=== PATIENT | male | born 1990 | race Hispanic/Latino ===

== ENCOUNTER 2020-06-19 06:51 | Emergency (ER) | payer SELFPAY ==
[2020-06-19 08:46] LABS: Absolute Lymphocytes (CBC) 1.9 K/uL (0.7-4.9); Basophils % 0.4 % (0-1.3); Hematocrit 44.7 % (39.6-49.0); Lymphocytes % 19.9 % (15.3-44.8); MPV 6.5 fL (7.6-11.3); RBC Red Blood Cell Count 5.01 M/uL (4.33-5.43)
[2020-06-19] MEDS ORDERED: NA CHLORIDE 0.9% 1,000 ML ONE (09:09)
[2020-06-19 09:13] LABS: Protime INR 1.03
[2020-06-19 09:39] LABS: ALT/SGPT 46 U/L (12-78); AST/SGOT 20 U/L (15-37); Albumin 4.2 g/dL (3.4-5.0); Alkaline Phosphatase 78 U/L (45-117); BUN Blood Urea Nitrogen 13 mg/dL (7-18); Bicarbonate 27 mmol/L (21-32); Bilirubin Direct 0.1 mg/dL (0-0.2); Bilirubin Total 0.5 mg/dL (0.2-1.0); Glucose Level 105 mg/dL (74-106); Sodium Level 139 mmol/L (136-145); Thyroid Stimulating Hormone 0.249 uIU/mL (0.360-3.740)
--- NOTE | 2020-06-19 09:45 | EDPHYS ---
Physician Documentation [facility] Name: Jer Cowan Jr Age: 30 yrs Sex: Male : 1990 Arrival Date: 06/19/2020 Time: 06:58 Bed 26 Private MD: ED Physician Chong Rendon HPI: 06/19 09:38 This 30 yrs old Male presents to ER via Ambulatory with complaints of argelia Palpitations, Vision Problem. 09:38 The patient presents with a history of heart racing. Context: The symptoms occur with [facility] anxiety. Onset: The symptoms/episode began/occurred 1 month(s) ago. Duration: The patient or guardian reports multiple episodes, with no pattern. Modifying factors: The symptoms are aggravated by anxiety, caffeine. Associated signs and symptoms: Pertinent positives: lightheadedness. Severity of symptoms: At their worst the symptoms were mild in the emergency department the symptoms have resolved. The patient has experienced similar episodes in the past, multiple times. Historical: - Allergies: 07:24 No Known Allergies; iw - Home Meds: 07:24 None [Active]; iw - PMHx: 07:24 None; iw - PSHx: 07:24 Appendectomy; Knee surgery; iw - Immunization history:: Adult Immunizations. - Social history:: Smoking status: Patient reports the use of cigarette tobacco products, smokes one pack cigarettes per day. - Family history:: not pertinent. ROS: 09:38 Constitutional: Negative for fever, chills, and weight loss, Eyes: Negative for injury, argelia pain, redness, and discharge, ENT: Negative for injury, pain, and discharge, Neck: Negative for injury, pain, and swelling, Respiratory: Negative for shortness of breath, cough, wheezing, and pleuritic chest pain, Abdomen/GI: Negative for abdominal pain, nausea, vomiting, diarrhea, and constipation, Back: Negative for injury and pain, : Negative for injury, bleeding, discharge, and swelling, MS/Extremity: Negative for injury and deformity, Skin: Negative for injury, rash, and discoloration, Neuro: Negative for headache, weakness, numbness, tingling, and seizure, Psych: Negative for depression, anxiety, suicide ideation, homicidal ideation, and hallucinations, Allergy/Immunology: Negative for hives, rash, and allergies, Endocrine: Negative for neck swelling, polydipsia, polyuria, polyphagia, and marked weight changes, Hematologic/Lymphatic: Negative for swollen nodes, abnormal bleeding, and unusual bruising. 09:38 Cardiovascular: Positive for palpitations. 09:38 Respiratory: Negative for cough, dyspnea on exertion, hemoptysis, orthopnea, pleurisy, shortness of breath, sputum production. Exam: 09:38 Constitutional: This is a well developed, well nourished patient who is awake, alert, argelia and in no acute distress. Head/Face: Normocephalic, atraumatic. Eyes: Pupils equal round and reactive to light, extra-ocular motions intact. Lids and lashes normal. Conjunctiva and sclera are non-icteric and not injected. Cornea within normal limits. Periorbital areas with no swelling, redness, or edema. ENT: Nares patent. No nasal discharge, no septal abnormalities noted. Tympanic membranes are normal and external auditory canals are clear. Oropharynx with no redness, swelling, or masses, exudates, or evidence of obstruction, uvula midline. Mucous membranes moist. Neck: Trachea midline, no thyromegaly or masses palpated, and no cervical lymphadenopathy. Supple, full range of motion without nuchal rigidity, or vertebral point tenderness. No Meningismus. Chest/axilla: Normal chest wall appearance and motion. Nontender with no deformity. No lesions are appreciated. Cardiovascular: Regular rate and rhythm with a normal S1 and S2. No gallops, murmurs, or rubs. Normal PMI, no JVD. No pulse deficits. Respiratory: Lungs have equal breath sounds bilaterally, clear to auscultation and percussion. No rales, rhonchi or wheezes noted. No increased work of breathing, no retractions or nasal flaring. Abdomen/GI: Soft, non-tender, with normal bowel sounds. No distension or tympany. No guarding or rebound. No evidence of tenderness throughout. Back: No spinal tenderness. No costovertebral tenderness. Full range of motion. Male : Normal genitalia with no discharge or lesions. Skin: Warm, dry with normal turgor. Normal color with no rashes, no lesions, and no evidence of cellulitis. MS/ Extremity: Pulses equal, no cyanosis. Neurovascular intact. Full, normal range of motion. Neuro: Awake and alert, GCS 15, oriented to person, place, time, and situation. Cranial nerves II-XII grossly intact. Motor strength 5/5 in all extremities. Sensory grossly intact. Cerebellar exam normal. Normal gait. Psych: Awake, alert, with orientation to person, place and time. Behavior, mood, and affect are within normal limits. 09:46 ECG was reviewed by the Attending Physician. [facility] Vital Signs: 07:22 BP 156 / 98; Pulse 99; Resp 16; Temp 97.8; Pulse Ox 100% on R/A; iw 09:00 BP 125 / 76; Pulse 62; Resp 15 S; Pulse Ox 100% on R/A; ca1 10:00 BP 126 / 75; Pulse 72; Resp 16 S; Pulse Ox 100% on R/A; ca1 MDM: 08:13 Patient medically screened. argelia 09:41 JACKY Risk Score: Total Score = 0. Differential diagnosis: arrythmia, dehydration, argelia stress disorder. Data reviewed: vital signs, nurses notes, lab test result(s), EKG, radiologic studies, plain films. Data interpreted: lunchroom monitor: rate is 62 beats/min, rhythm is regular, Pulse oximetry: on. Test interpretation: by ED physician or midlevel provider: ECG, plain radiologic studies. Counseling: I had a detailed discussion with the patient and/or guardian regarding: the historical points, exam findings, and any diagnostic results supporting the discharge/admit diagnosis, lab results, radiology results, the need for outpatient follow up, for definitive care, a telegraph service clerk, a family practitioner. 06/19 08:15 Order name: Acetaminophen [facility] 06/19 08:15 Order name: Basic Metabolic Panel [facility] 06/19 08:15 Order name: CBC with Diff [facility] 06/19 08:15 Order name: ETOH Level [facility] 06/19 08:15 Order name: Hepatic Function [facility] 06/19 08:15 Order name: PT-INR; Complete Time: 09:34 [facility] 06/19 08:15 Order name: Ptt, Activated; Complete Time: 09:34 [facility] 06/19 08:15 Order name: Salicylate; Complete Time: 09:34 [facility] 06/19 08:15 Order name: Urine Drug Screen [facility] 06/19 08:15 Order name: TSH [facility] 06/19 08:16 Order name: Acetaminophen Level [facility] 06/19 08:16 Order name: Basic Metabolic Panel [facility] 06/19 08:16 Order name: CBC with Automated Diff; Complete Time: 09:34 [facility] 06/19 08:16 Order name: Alcohol Serum/Plasma; Complete Time: 09:34 [facility] 06/19 08:15 Order name: EKG; Complete Time: 08:16 [facility] 06/19 08:15 Order name: EKG - Nurse/Tech; Complete Time: 08:59 [facility] 06/19 08:15 Order name: IV Saline Lock; Complete Time: 08:59 [facility] 06/19 08:15 Order name: Labs collected and sent; Complete Time: 09:00 [facility] 06/19 08:15 Order name: Urine Dipstick-Ancillary (obtain specimen); Complete Time: 09:00 [facility] 06/19 08:15 Order name: Chest Single View XRAY [facility] 06/19 08:16 Order name: Liver (Hepatic) Function [facility] 06/19 08:49 Order name: Urine Dipstick--Ancillary (enter results) eb EC:46 Rate is 69 beats/min. Rhythm is regular. QRS [place] is Normal. NV interval is normal. QRS argelia interval is normal. QT interval is normal. No Q waves. T waves are Normal. No ST changes noted. Clinical impression: NSR w/ Non-specific ST/T Changes and No evidence of ischemia. Interpreted by me. Reviewed by me. Administered Medications: 08:45 Drug: NS 0.9% 1000 ml Route: IV; Rate: 1 bolus; Site: right antecubital; ca1 09:30 Follow up: IV Status: Completed infusion; IV Intake: 1000ml ca1 10:00 Drug: Aspirin 162 mg Route: PO; ca1 10:32 Follow up: Response: No adverse reaction ca1 Disposition: 06/19/20 09:44 Discharged to Home. Impression: Palpitations, Tobacco abuse counseling, Tobacco use, Anxiety disorder, unspecified. - Condition is Stable. - Discharge Instructions: Panic Attacks, Palpitations, Steps to Quit Smoking, Smoking Hazards, Steps to Quit Smoking, [id number]-[id number], Panic Attacks, [id number], Aspirin and Your Heart, Palpitations, Fyir-[id number]-Gtno. - Prescriptions for Hydroxyzine HCl 25 mg Oral Tablet - take 1 tablet by ORAL route every 6 hours As needed; 30 tablet. - Medication Reconciliation Form, Thank You Letter, Antibiotic Education, Prescription Opioid Use form. - Follow up: Private Physician; When: 2 - 3 days; Reason: Recheck today's complaints, Continuance of care, Re-evaluation by your physician. Follow up: Caleb Yang MD; When: 2 - 3 days; Reason: Recheck today's complaints, Re-evaluation by your physician. - Problem is new. - Symptoms have improved. Signatures: Dispatcher [employer] Chong Fuentes MD MD cha Williams, Irene, RN RN iw Kelsey Valero RN RN ca1 Corrections: (The following items were deleted from the chart) 09:45 09:44 06/19/2020 09:44 Discharged to Home. Impression: Palpitations; Tobacco abuse argelia counseling; Tobacco use. Condition is Stable. Forms are Medication Reconciliation Form, Thank You Letter, Antibiotic Education, Prescription Opioid Use. Follow up: Private Physician; When: 2 - 3 days; Reason: Recheck today's complaints, Continuance of care, Re-evaluation by your physician. Follow up: Caleb Yang; When: 2 - 3 days; Reason: Recheck today's complaints, Re-evaluation by your physician. Problem is new. Symptoms have improved. argelia 10:34 09:45 06/19/2020 09:44 Discharged to Home. Impression: Palpitations; Tobacco abuse ca1 counseling; Tobacco use; Anxiety disorder, unspecified. Condition is Stable. Discharge Instructions: Palpitations, Steps to Quit Smoking, Smoking Hazards, Steps to Quit Smoking, Umwo-hb-Nylx, Aspirin and Your Heart, Palpitations, Ibrx-[id number]-Hwvf. Prescriptions for Hydroxyzine HCl 25 mg Oral Tablet - take 1 tablet by ORAL route every 6 hours As needed; 30 tablet. and Forms are Medication Reconciliation Form, Thank You Letter, Antibiotic Education, Prescription Opioid Use. Follow up: Private Physician; When: 2 - 3 days; Reason: Recheck today's complaints, Continuance of care, Re-evaluation by your physician. Follow up: Caleb Yang; When: 2 - 3 days; Reason: Recheck today's complaints, Re-evaluation by your physician. Problem is new. Symptoms have improved. argelia
--- NOTE | 2020-06-19 09:45 | ER ---
Nurse's Notes [facility] Name: Jer Cowan Jr Age: 30 yrs Sex: Male : 1990 Arrival Date: 06/19/2020 Time: 06:58 Bed 26 Private MD: Diagnosis: Palpitations;Tobacco abuse counseling;Tobacco use;Anxiety disorder, unspecified Presentation: 06/19 07:22 Chief complaint: Patient states: has been having trouble breathing and his heart has iw been beating funny and gets randomly dizzy and it brings on anxiety, started a month ago. Coronavirus screen: At this time, the client does not indicate any symptoms associated with coronavirus-19. Ebola Screen: Patient negative for fever greater than or equal to 101.5 degrees Fahrenheit, and additional compatible Ebola Virus Disease symptoms Patient denies exposure to infectious person. Patient denies travel to an Ebola-affected area in the 21 days before illness onset. No symptoms or risks identified at this time. Initial Sepsis Screen: Does the patient meet any 2 criteria? No. Patient's initial sepsis screen is negative. Does the patient have a suspected source of infection? No. Patient's initial sepsis screen is negative. Risk Assessment: Do you want to hurt yourself or someone else? Patient reports no desire to harm self or others. Onset of symptoms was May 2020. 07:22 Method Of Arrival: Ambulatory iw 07:22 Acuity: JOHNNY 3 iw Historical: - Allergies: 07:24 No Known Allergies; iw - Home Meds: 07:24 None [Active]; iw - PMHx: 07:24 None; iw - PSHx: 07:24 Appendectomy; Knee surgery; iw - Immunization history:: Adult Immunizations. - Social history:: Smoking status: Patient reports the use of cigarette tobacco products, smokes one pack cigarettes per day. - Family history:: not pertinent. Screenin:15 Abuse screen: Denies threats or abuse. Denies injuries from another. Nutritional ca1 screening: No deficits noted. Tuberculosis screening: No symptoms or risk factors identified. Fall Risk IV access (20 points). Assessment: 08:15 General: Appears in no apparent distress. comfortable, Behavior is calm, cooperative, ca1 appropriate for age. Pain: Denies pain. Neuro: Level of Consciousness is awake, alert, obeys commands, Oriented to person, place, time, situation. Cardiovascular: Heart tones S1 S2 present Capillary refill < 3 seconds Patient's skin is warm and dry. Rhythm is sinus rhythm. Respiratory: Airway is patent Respiratory effort is even, unlabored, Respiratory pattern is regular, symmetrical. GI: Abdomen is flat, non-distended, Bowel sounds present X 4 quads. Abd is soft and non tender X 4 quads. : No signs and/or symptoms were reported regarding the genitourinary system. EENT: No signs and/or symptoms were reported regarding the EENT system. Derm: Skin is intact, is healthy with good turgor, Skin is pink, warm \T\ dry. Musculoskeletal: Circulation, motion, and sensation intact. Capillary refill < 3 seconds. 09:00 Reassessment: Patient appears in no apparent distress at this time. Patient and/or ca1 family updated on plan of care and expected duration. Pain level reassessed. Patient is alert, oriented x 3, equal unlabored respirations, skin warm/dry/pink. 10:00 Reassessment: Patient appears in no apparent distress at this time. Patient and/or ca1 family updated on plan of care and expected duration. Pain level reassessed. Patient is alert, oriented x 3, equal unlabored respirations, skin warm/dry/pink. Vital Signs: 07:22 BP 156 / 98; Pulse 99; Resp 16; Temp 97.8; Pulse Ox 100% on R/A; iw 09:00 BP 125 / 76; Pulse 62; Resp 15 S; Pulse Ox 100% on R/A; ca1 10:00 BP 126 / 75; Pulse 72; Resp 16 S; Pulse Ox 100% on R/A; ca1 ED Course: 06:58 Patient arrived in ED. am4 07:24 Triage completed. iw 07:25 Arm band placed on. iw 08:13 Chong Rendon MD is Attending Physician. argelia 08:15 Kelsey Valero RN is Primary Nurse. ca1 08:15 Patient has correct armband on for positive identification. Bed in low position. Call ca1 light in reach. Side rails up X2. cafeteria monitor on. Pulse ox on. NIBP on. Warm blanket given. 08:45 Inserted saline lock: 20 gauge in right antecubital area, using aseptic technique. ca1 Blood collected. 08:45 EKG done, by ED staff, reviewed by Chong Rendon MD. ca1 09:35 Chest Single View XRAY In Process Unspecified. EDMS 09:44 Caleb Yang MD is Referral Physician. argelia 10:33 No provider procedures requiring assistance completed. IV discontinued, intact, ca1 bleeding controlled, No redness/swelling at site. Pressure dressing applied. Administered Medications: 08:45 Drug: NS 0.9% 1000 ml Route: IV; Rate: 1 bolus; Site: right antecubital; ca1 09:30 Follow up: IV Status: Completed infusion; IV Intake: 1000ml ca1 10:00 Drug: Aspirin 162 mg Route: PO; ca1 10:32 Follow up: Response: No adverse reaction ca1 Intake: 09:30 IV: 1000ml; Total: 1000ml. ca1 Outcome: :44 Discharge ordered by . argelia 10:33 Discharged to home ambulatory. ca1 10:33 Condition: stable 10:33 Discharge instructions given to patient, Instructed on discharge instructions, follow up and referral plans. no drinking with medication, no driving heavy equipment, medication usage, Demonstrated understanding of instructions, follow-up care, medications, Prescriptions given X 1. 10:34 Patient left the ED. ca1 Signatures: Dispatcher [employer] EDMT Chong Rendon MD MD cha Williams, Irene, RN RN Kelsey Hinds RN RN Daxa Love
[2020-06-19 09:55] LABS: Urine Blood TRACE (NEG); Urine Glucose NEGATIVE (NEG); Urine Protein NEGATIVE (NEG); Urine pH 7.5 (5.0-7.0)
[2020-06-19 10:27] LABS: Barbiturates NEGATIVE (NEGATIVE); Benzodiazepines NEGATIVE (NEGATIVE); Cocaine NEGATIVE (NEGATIVE); METHAMPHETAM NEGATIVE (NEGATIVE); Methadone NEGATIVE (NEGATIVE); Opiates NEGATIVE (NEGATIVE); Phencyclidine NEGATIVE (NEGATIVE); THC Cannibis POSITIVE (NEGATIVE)
[2020-06-19] MEDS ORDERED: ASPIRIN 81 MG CHEWABLE TABLET ONE (10:36)
[2020-06-19 10:58] VITALS: TEMP 97.8; O2SAT 100
[2020-06-19 11:01] VITALS: BP 126/75
--- NOTE | 2020-06-19 11:40 | RAD REPORT ---
EXAM DESCRIPTION: RAD - Chest Single View - 06/19/2020 9:29 am CLINICAL HISTORY: Cough;Palpitations Chest pain. COMPARISON: No comparisons FINDINGS: Portable technique limits examination quality. The lungs are grossly clear. The heart is normal in size. No displaced fractures. IMPRESSION: No acute intrathoracic process suspected.
== END 2020-06-19 10:34 | disposition home or self-care (01) ==
LOC: ER 06:51
DX: F41.9 Anxiety disorder, unspecified (principal); Z72.0 Tobacco use; Z71.6 Tobacco abuse counseling
CPT/HCPCS: 36415; 71045; 80048; 80076; 80307; 80320; 80329; 81003; 84443; 85025; 85610; 85730; 93005; 96360; 99284; J7030

== ENCOUNTER 2020-09-13 13:47 | Emergency (ER) | payer SELFPAY ==
--- NOTE | 2020-09-13 19:53 | ER ---
Nurse's Notes [facility] Name: Jer Cowan Jr Age: 30 yrs Sex: Male : 1990 Arrival Date: 09/13/2020 Time: 13:51 Bed Waiting Private MD: Diagnosis: Presentation: 09/13 14:29 Chief complaint: Patient states: right flank pain radiates to RUQ x a few months but jl7 this last week has gotten worse, denies urinary symptoms, denies N/V/D, reports being gassy. Coronavirus screen: Client denies travel out of the [place] in the last 14 days. At this time, the client does not indicate any symptoms associated with coronavirus-19. Ebola Screen: No symptoms or risks identified at this time. Initial Sepsis Screen: Does the patient meet any 2 criteria? No. Patient's initial sepsis screen is negative. Does the patient have a suspected source of infection? No. Patient's initial sepsis screen is negative. Risk Assessment: Do you want to hurt yourself or someone else? Patient reports no desire to harm self or others. Onset of symptoms is unknown. Care prior to arrival: None. 14:29 Method Of Arrival: Ambulatory jl7 14:29 Acuity: JOHNNY 3 jl7 Historical: - Allergies: 14:31 No Known Allergies; jl7 - Home Meds: 14:31 None [Active]; jl7 - PMHx: 14:31 None; jl7 - PSHx: 14:31 Appendectomy; jl7 - Immunization history:: Adult Immunizations unknown. - Social history:: Smoking status: Patient denies any tobacco usage or history of. Patient uses street drugs, marijuana. Vital Signs: 14:29 BP 136 / 95; Pulse 72; Resp 15; Temp 98.4; Pulse Ox 98% ; Weight 86.18 kg; Height 6 ft. jl7 2 in. (187.96 cm); Pain 7/10; 14:29 Body Mass Index 24.39 (86.18 kg, 187.96 cm) jl7 ED Course: 13:51 Patient arrived in ED. mr 14:31 Triage completed. jl7 14:31 Arm band placed on right wrist. Patient placed in waiting room, Patient notified of jl7 wait time. 19:53 Patient's name was called from lobby. No response. Unable to locate patient. Will bb disposition as left without being seen by a provider. Administered Medications: No medications were administered Outcome: 19:53 Patient left the ED. bb Signatures: Olesya Plascencia Brenda, RN RN bb Vera Parker RN RN jl7
[2020-09-13 20:03] VITALS: BP 136/95; TEMP 98.4; O2SAT 98
== END 2020-09-13 19:53 | disposition left against medical advice (07) ==
LOC: ER 13:47
DX: R10.11 Right upper quadrant pain (principal); Z53.21 Procedure and treatment not carried out due to patient leaving prior to being seen by health care provider
CPT/HCPCS: 99281

== ENCOUNTER 2020-10-30 12:56 | Emergency (ER) | payer SELFPAY ==
[2020-10-30 13:57] LABS: Absolute Lymphocytes (CBC) 1.5 K/uL (0.7-4.9); Basophils % 0.6 % (0-1.3); Hematocrit 44.2 % (39.6-49.0); MPV 6.6 fL (7.6-11.3); RBC Red Blood Cell Count 4.87 M/uL (4.33-5.43)
[2020-10-30] MEDS ORDERED: ALBUTEROL 2.5 MG/3 ML NEB SOL ONE (14:03)
[2020-10-30] MEDS ORDERED: NA CHLORIDE 0.9% 1,000 ML ONE (14:03)
[2020-10-30 14:13] LABS: ALT/SGPT 24 U/L (12-78); AST/SGOT 11 U/L (15-37); Alkaline Phosphatase 71 U/L (45-117); BUN Blood Urea Nitrogen 11 mg/dL (7-18); Bicarbonate 25 mmol/L (21-32); Bilirubin Total 0.4 mg/dL (0.2-1.0); Creatine Phosphokinase 94 U/L (39-308); Glucose Level 101 mg/dL (74-106); Potassium 3.9 mmol/L (3.5-5.1); Protein, Total 7.6 g/dL (6.4-8.2); Sodium Level 140 mmol/L (136-145)
--- NOTE | 2020-10-30 15:52 | RAD REPORT ---
EXAM DESCRIPTION: RAD - Chest Single View - 10/30/2020 3:27 pm CLINICAL HISTORY: cough, fever Chest pain. COMPARISON: Chest Single View dated 06/19/2020 FINDINGS: Portable technique limits examination quality. The lungs are grossly clear. The heart is normal in size. No displaced fractures. IMPRESSION: No acute intrathoracic process suspected.
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
[2020-10-30 17:00] VITALS: BP 156/97; TEMP 98.3; O2SAT 100
== END 2020-10-30 16:33 | disposition home or self-care (01) ==
LOC: ER 12:56
DX: J01.10 Acute frontal sinusitis, unspecified (principal); Z20.822 Contact with and (suspected) exposure to COVID-19
CPT/HCPCS: 36415; 71045; 80053; 82550; 85025; 99284; J7030; U0003